=== PATIENT | male | born 1950 | race Caucasian/White ===

== ENCOUNTER 2017-08-06 14:49 | Outpatient (CLI) | payer MEDICARE ==
--- NOTE | 2017-08-06 16:44 | RAD ---
EXAM: THREE VIEWS LUMBAR SPINE 08/06/17 HISTORY: Lumbago with left sided sciatica. COMPARISON: None. FINDINGS: There is 1.2 mm anterolisthesis of L5 upon S1 with possible associated spondylolysis. There are five lumbar type vertebral bodies. No significant loss of disc space height. There is 4 mm of retrolisthesis of L4 upon L5. 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 POS: [facility]
== END 2017-08-06 14:50 | disposition home or self-care (01) ==
LOC: NAV RAD 14:49
PROVIDERS: ATTEND Radiology Diagnostic Radiology
DX: M54.42 Lumbago with sciatica, left side (principal); M47.897 Other spondylosis, lumbosacral region; M43.17 Spondylolisthesis, lumbosacral region
CPT/HCPCS: 72100

== ENCOUNTER 2017-09-18 15:38 | Outpatient (CLI) | payer MEDICARE ==
[2017-09-18 20:20] LABS: INR-International Normal Ratio 3.2; Prothrombin Time 34.4 SEC (12.0-14.7)
[2017-09-18 20:26] LABS: Anion Gap 14 mmol/L (10-20); BUN (Urea Nitrogen) 19 mg/dL (8.4-25.7); Calc. Creatinine Clearance 0 mL/min (70-130); Calcium 9.7 mg/dL (7.8-10.44); Carbon Dioxide 27 mmol/L (23-31); Chloride 104 mmol/L (98-107); Estimated GFR-MDRD 49; Glucose 108 mg/dL (80-115); Sodium 140 mmol/L (136-145)
== END 2017-09-18 15:39 | disposition home or self-care (01) ==
LOC: NAV LAB 15:38
PROVIDERS: ATTEND Internal Medicine Cardiovascular Disease
DX: I82.401 Acute embolism and thrombosis of unspecified deep veins of right lower extremity (principal)
CPT/HCPCS: 80048; 85610

== ENCOUNTER 2017-11-07 10:59 | Outpatient (CLI) | payer MEDICARE ==
--- NOTE | 2017-11-07 12:31 | RAD ---
CHEST TWO VIEWS: History: COPD. FINDINGS: Heart size is within normal limits. Mediastinal structures appear unremarkable. There are some arthro sclerotic changes of the aorta. The lungs are clear of infiltrate. IMPRESSION: No active intrathoracic disease. POS: [facility]
== END 2017-11-07 11:00 | disposition home or self-care (01) ==
LOC: EDBD 10:59 → NAV RAD 10:59
PROVIDERS: ATTEND Nurse Practitioner Family
DX: J44.1 Chronic obstructive pulmonary disease with (acute) exacerbation (principal)
CPT/HCPCS: 71046

== ENCOUNTER 2021-06-08 11:01 | Outpatient (CLI) | payer MEDICARE, MEDICAID | END 2021-06-08 11:02 | disposition home or self-care (01) | LOC: NAV RAD 11:01 | PROVIDERS: ATTEND Nurse Practitioner Family | DX: S89.92XA Unspecified injury of left lower leg, initial encounter (principal) ==

== ENCOUNTER 2021-06-12 12:38 | Emergency (ER) | payer MEDICARE, MEDICAID ==
[2021-06-12 13:25] LABS: #Basophils 0.2 thou/uL (0.0-0.2); #Eosinphils 0.4 thou/uL (0.0-0.7); #Lymphocytes 1.3 thou/uL (1.20-3.40); #Monocytes 0.7 thou/uL (0.11-0.59); #Neutrophils 4.2 thou/uL (1.40-6.50); %Basophils 2.4 % (0.0-1.0); %Eosinophils 5.3 % (0.0-10.0); %Lymphocytes 19.7 % (21.0-51.0); %Monocytes 10.2 % (0.0-10.0); %Neutrophils 62.4 % (42.0-75.0); Hemoglobin 15.7 g/dL (14.0-18.0); Mean Corpuscular HGB CONC 32.5 g/dL (32.0-36.0); Mean Corpuscular Hemoglobin 32.3 pg (27.0-31.0); Mean Corpuscular Volume 99.2 fL (78.0-98.0); Mean Platelet Volume 8.6 fL (7.4-10.4); Platelet Count 218 thou/uL (130-400); RBC Distribution Width 11.9 % (11.5-14.5); Red Blood Cell (RBC) Count 4.85 mill/uL (4.70-6.10); White Blood Cell (WBC) Count 6.7 thou/uL (4.8-10.8)
[2021-06-12] MEDS ORDERED: Ondansetron PF 4 MG/2 ML Vial ONE (13:26)
[2021-06-12] MEDS ORDERED: Morphine 4 MG/ML VIAL ONE (13:26)
[2021-06-12 13:39] LABS: ALT (SGPT) 20 U/L (8-55); AST (SGOT) 25 U/L (5-34); Albumin 3.7 g/dL (3.4-4.8); Alkaline Phosphatase 120 U/L (40-110); Anion Gap 14 mmol/L (10-20); BUN (Urea Nitrogen) 24 mg/dL (8.4-25.7); Bilirubin, Total 1.6 mg/dL (0.2-1.2); Calc. Creatinine Clearance 0 mL/min (70-130); Calcium 9.1 mg/dL (7.8-10.44); Carbon Dioxide 24 mmol/L (23-31); Chloride 103 mmol/L (98-107); Globulin 3.3 g/dL (2.4-3.5); Glucose 125 mg/dL (83-110); Sodium 137 mmol/L (136-145)
[2021-06-12] MEDS ORDERED: Clindamycin 150 MG CAP ONE (14:13)
== END 2021-06-12 14:26 | disposition home or self-care (01) ==
LOC: NAV ERS 12:38
DX: S80.12XA Contusion of left lower leg, initial encounter (principal); L03.116 Cellulitis of left lower limb; I11.0 Hypertensive heart disease with heart failure; I50.9 Heart failure, unspecified; Z86.718 Personal history of other venous thrombosis and embolism; Z87.891 Personal history of nicotine dependence; Z86.711 Personal history of pulmonary embolism; Z79.01 Long term (current) use of anticoagulants; Z79.899 Other long term (current) drug therapy; X58.XXXA Exposure to other specified factors, initial encounter
CPT/HCPCS: 80053; 83605; 85025; 96374; 96375; J2270; J2405

== ENCOUNTER 2024-01-26 23:22 | Emergency (ER) | payer OTHER, MEDICAID ==
[2024-01-26 23:47] LABS: #Basophils 0.1 thou/uL (0.0-0.2); #Eosinphils 0.4 thou/uL (0.0-0.7); #Monocytes 0.6 thou/uL (0.11-0.59); #Neutrophils 3.6 thou/uL (1.40-6.50); %Basophils 1.7 % (0.0-1.0); %Eosinophils 6.5 % (0.0-10.0); %Lymphocytes 29.7 % (21.0-51.0); %Monocytes 8.5 % (0.0-10.0); %Neutrophils 53.6 % (42.0-75.0); Hematocrit 51.1 % (42.0-52.0); Hemoglobin 15.8 g/dL (14.0-18.0); Mean Corpuscular HGB CONC 30.9 g/dL (32.0-36.0); Mean Corpuscular Hemoglobin 30.9 pg (27.0-31.0); Mean Corpuscular Volume 99.8 fl (78.0-98.0); Mean Platelet Volume 8.4 fL (7.4-10.4); Platelet Count 150 10x3/uL (130-400); RBC Distribution Width 12.8 % (11.5-14.5); Red Blood Cell (RBC) Count 5.12 mill/uL (4.70-6.10); White Blood Cell (WBC) Count 6.8 10x3/uL (4.8-10.8)
[2024-01-27 00:04] LABS: ALT (SGPT) 29 U/L (8-55); AST (SGOT) 32 U/L (5-34); Albumin 4.2 g/dL (3.4-4.8); Alkaline Phosphatase 106 U/L (40-110); Anion Gap 14 mmol/L (10-20); BUN (Urea Nitrogen) 21 mg/dL (8.4-25.7); Bilirubin, Total 0.8 mg/dL (0.2-1.2); Calc. Creatinine Clearance 0 mL/min (70-130); Calcium 9.7 mg/dL (7.8-10.44); Carbon Dioxide 26 mmol/L (23-31); Chloride 103 mmol/L (98-107); Estimated GFR 41; Globulin 3.2 g/dL (2.4-3.5); Glucose 116 mg/dL (83-110); Potassium 4.4 mmol/L (3.5-5.1); Protein, Total 7.4 g/dL (5.8-8.1); Sodium 139 mmol/L (136-145)
[2024-01-27 00:05] LABS: Troponin I 0.023 ng/mL (< 0.028)
[2024-01-27] MEDS ORDERED: Aspirin 325 MG TAB ONE (00:54)
== END 2024-01-27 02:05 | disposition short-term general hospital (02) ==
LOC: NAV ERS 23:22
DX: R29.818 Other symptoms and signs involving the nervous system (principal); R47.01 Aphasia; R00.0 Tachycardia, unspecified; I11.0 Hypertensive heart disease with heart failure; I50.9 Heart failure, unspecified; R79.89 Other specified abnormal findings of blood chemistry; Z86.718 Personal history of other venous thrombosis and embolism; Z86.711 Personal history of pulmonary embolism; Z79.01 Long term (current) use of anticoagulants; Z79.899 Other long term (current) drug therapy; Z79.82 Long term (current) use of aspirin; Z87.891 Personal history of nicotine dependence
CPT/HCPCS: 70450; 71045; 80053; 83880; 84484; 85025; 93005; 94760; 96360

== ENCOUNTER 2024-05-22 11:57 | Outpatient (CLI) | payer OTHER, MEDICARE | END 2024-05-22 11:58 | disposition home or self-care (01) | LOC: NAV RAD 11:57 | PROVIDERS: ATTEND Nurse Practitioner Family | DX: G56.03 Carpal tunnel syndrome, bilateral upper limbs (principal); M17.12 Unilateral primary osteoarthritis, left knee; M25.762 Osteophyte, left knee; I70.202 Unspecified atherosclerosis of native arteries of extremities, left leg ==